=== PATIENT | female | born 1975 | race Caucasian/White ===

== ENCOUNTER 2019-04-24 08:30 | Emergency (ER) | payer MEDICAID ==
[~2019-04-24] VITALS: Ht 165.1 cm; Wt 72.6 kg
[~2019-04-24 08:30] MED LIST: ADDERALL 30 MG30 MG PO; BACTRIM DS TAB1 EACH PO; CELEXA20 MG PO; CLONAZEPAM 1 MG1 M1 PO; CLONIDINE HCL0.1 MG PO; HYDROXYZINE HCL25 M2 PO
[2019-04-24] MEDS ORDERED: ZYRTEC 10 MG TA10 MG PO (09:00)
[2019-04-24] MEDS ORDERED: PEPCID40 MG PO (09:00)
[2019-04-24] MEDS ORDERED: PREDNISONE 20 M20 M1 PO (09:00)
[2019-04-24 09:13] VITALS: BP 148/75
== END 2019-04-24 09:13 | disposition home or self-care (01) ==
LOC: M.ERS 08:30
DX: L50.9 Urticaria, unspecified (principal); R60.0 Localized edema; F17.200 Nicotine dependence, unspecified, uncomplicated; F41.9 Anxiety disorder, unspecified; F32.9 Major depressive disorder, single episode, unspecified; F98.8 Other specified behavioral and emotional disorders with onset usually occurring in childhood and adolescence

== ENCOUNTER 2019-05-07 08:23 | Emergency (ER) | payer MEDICAID ==
[~2019-05-07] VITALS: Ht 165.1 cm; Wt 69.8 kg
[~2019-05-07 08:23] MED LIST changes: +PEPCID40 MG PO; +PREDNISONE 20 M20 M1 PO; +ZYRTEC 10 MG TA10 MG PO
[2019-05-07] MEDS ORDERED: BACTRIM DS TAB1 EACH PO (08:38)
[2019-05-07] MEDS ORDERED: CHANTIX1 MG PO (08:39)
[2019-05-07] MEDS ORDERED: LIORESAL 10 MG10 MG PO (08:39)
[2019-05-07] MEDS ORDERED: GABAPENTIN 100100 MG PO (08:41)
[2019-05-07 09:31] LABS: ABSOLUTE BASOPHILS 0.1 thou/uL (0.0-0.2); ABSOLUTE EOSINOPHILS 0.2 thou/uL (0.0-0.7); ABSOLUTE LYMPHOCYTES 2.8 thou/uL (0.8-5.3); ABSOLUTE MONOCYTES 0.6 thou/uL (0.0-1.2); ABSOLUTE NEUTROPHILS 4.5 thou/uL (1.6-8.1); BASOPHILS 1.1 %; EOSINOPHILS 2.5 %; HEMATOCRIT 42.4 % (37.0-47.0); HEMOGLOBIN 14.3 gm/dL (12.0-15.0); LYMPHOCYTES 34.5 %; MCH 33.1 pg (26.0-34.0); MCHC 33.7 g/dL (28.0-37.0); MCV 98.3 fL (80.0-100.0); MONOCYTES 7.7 %; MPV 7.9 fl. (7.2-11.1); NUCLEATED RBCS 0 /100WBC; PLATELET COUNT* 280 thou/uL (150-400); POLYS 54.2 %; RBC 4.31 mil/uL (4.20-5.00); RDW-CV 12.7 % (10.5-14.5); WBC 8.3 thou/uL (4.0-11.0)
[2019-05-07 09:39] LABS: ANION GAP 10 mmol/L (7-16); BUN 20 mg/dL (7-18); CALCIUM 8.9 mg/dL (8.5-10.1); CHLORIDE 102 mmol/L (98-107); CO2 24 mmol/L (21-32); CREATININE 0.7 mg/dL (0.6-1.3); GLUCOSE 87 mg/dL (70-99); POTASSIUM 4.1 mmol/L (3.5-5.1); SODIUM 136 mmol/L (136-145)
[2019-05-07 09:41] LABS: URINE BILIRUBIN NEGATIVE (Negative); URINE BLOOD 3+ (Negative); URINE CLARITY SL CLOUDY; URINE COLOR YELLOW; URINE GLUCOSE-RANDOM NEGATIVE (Negative); URINE KETONES NEGATIVE (Negative); URINE PROTEIN TRACE (Negative); URINE SPECIFIC GRAVITY >= 1.030 (1.005-1.030); URINE UROBILINOGEN 0.2 E.U./dl (0.2-1.0)
[2019-05-07 09:42] LABS: URINE LEUKOCYTES-REFLEX 3+ (Negative); URINE NITRITE-REFLEX POSITIVE (Negative)
[2019-05-07 09:48] LABS: SQUAMOUS >10 Many /LPF (0-3)
[2019-05-07 09:49] LABS: URINE RBC 3-10 Few /HPF (0-2); URINE WBC-REFLEX >25 Many /HPF (0-5)
[2019-05-07 09:50] LABS: BACTERIA-REFLEX >30 Many /HPF (None Seen); CASTS None Seen /LPF (None Seen); CRYSTALS None Seen /LPF (None Seen); MUCUS 4-6 Moderate strn/LPF (None Seen)
[2019-05-07 09:50] LABS: ALBUMIN 4.5 g/dL (3.4-5.0); ALKALINE PHOSPHATASE 49 U/L (46-116); NT-PRO BRAIN NAT PEPTIDE 21 pg/mL (<300); SGOT 22 U/L (15-37); SGPT 30 U/L (30-65); TOTAL BILIRUBIN 0.3 mg/dL (<0.1-1.0); TOTAL PROTEIN 7.9 g/dL (6.4-8.2); TROPONIN-I LEVEL <0.06 ng/mL (<0.06)
[2019-05-07 09:57] LABS: AMP/METHAMP POSITIVE (Negative); BARBITURATES Negative (Negative); BENZODIAZEPINES Negative (Negative); COCAINE Negative (Negative); METHADONE Negative (Negative); OPIATES Negative (Negative); PCP Negative (Negative); THC Negative (Negative)
[2019-05-07] MEDS ORDERED: KEFLEX500 M1 PO (10:50)
[2019-05-07 11:01] VITALS: BP 117/64
--- NOTE | 2019-05-07 20:12 | EKG ---
[place] [address] ELECTROCARDIOGRAM REPORT Name: CELESTE VASQUEZ [facility] [id number] Admission: 05/07/19 Attend Phys: Discharge: 05/07/19 Date of : 77 Report #: [id number] THIS REPORT FOR: //name// [facility] ED Test Date: 2019-05-07 Test Time: 09:34:06 Pat Name: CELESTE VASQUEZ Department: Room: Gender: F Speech Therapy Assistant: : 1975 Requested By: Servando Kyle Order Number: [id number] MD: Enrique Coley Measurements Intervals [place] Rate: 82 P: 55 IL: 152 QRS: 74 QRSD: 97 T: 38 QT: 370 QTc: 432 Interpretive Statements Sinus rhythm No previous ECG available for comparison Electronically Signed On 05-07-2019 20:11:40 CDT by Enrique Coley [email or web address] <ELECTRONICALLY SIGNED> By: Mayra Coley MD, [facility] 05/07/192010 0934 0934 Mayra Coley MD, FACC /EPI
== END 2019-05-07 11:01 | disposition home or self-care (01) ==
LOC: M.ERS 08:23
PROVIDERS: Emergency Medicine Emergency Medical Services
DX: N39.0 Urinary tract infection, site not specified (principal); R42 Dizziness and giddiness; F41.9 Anxiety disorder, unspecified; F32.9 Major depressive disorder, single episode, unspecified; I10 Essential (primary) hypertension; F17.210 Nicotine dependence, cigarettes, uncomplicated; Z79.899 Other long term (current) drug therapy